=== PATIENT | male | born 1955 | race Native Hawaiian/Other Pacific Islander ===

== ENCOUNTER 2020-02-05 18:17 | Emergency (ER) | payer OTHER ==
[~2020-02-05] VITALS: Ht 190.5 cm; Wt 81.6 kg
[2020-02-05 18:57] LABS: PLATELET COUNT 186 K/uL (142-355)
[2020-02-05 19:05] LABS: POTASSIUM 3.7 mmol/L (3.6-5.2)
[2020-02-05 19:35] VITALS: BP 129/74; TEMP 98.7
[2020-02-05] MEDS ORDERED: CADUET10 MG/10 M PO (22:11)
[2020-02-05] MEDS ORDERED: D3 PO (22:16)
[2020-02-05] MEDS ORDERED: SEROQUEL50 MG PO (22:20)
[2020-02-05] MEDS ORDERED: THIA100T8 PO (22:22)
[2020-02-05] MEDS ORDERED: SEROQUEL100 MG PO (22:24)
[2020-02-05] MEDS ORDERED: FOLATE400 MCG PO (22:25)
== END 2020-02-05 19:35 | disposition other institution (70) ==
LOC: ED 18:22
PROVIDERS: Emergency Medicine
DX: F28 Other psychotic disorder not due to a substance or known physiological condition (principal); Z11.59 Encounter for screening for other viral diseases; Z04.6 Encounter for general psychiatric examination, requested by authority
CPT/HCPCS: 36415; 80053; 81000; 85027; 87635; 93005; 99283; U0003